=== PATIENT | female | born 1985 | race African-American/Black ===

== ENCOUNTER 2021-05-12 07:27 | Day surgery (SDC) | payer OTHER ==
[2021-05-12 07:51] LABS: Specific Gravity >= 1.030 (1.005-1.030)
[2021-05-12] MEDS ORDERED: CEFAZOLIN SODIUM 1 GM/VIAL ONE (08:52)
[2021-05-12] MEDS ORDERED: GENTAMICIN SULF 80 MG/2ML INJ ONE (08:52)
[2021-05-12] MEDS ORDERED: NS 0.9% VIAL 30 ML ONE (08:52)
[2021-05-12] MEDS ORDERED: Mastisol Adhesive Liq ONE (08:53)
[2021-05-12] MEDS ORDERED: LIDOCAINE 1% W/EPI 1:100,000 MDV 20 ML VIAL ONE (08:53)
[2021-05-12] MEDS ORDERED: Ringers Lactate 1,000 ML IV ONE ×2 (08:53)
[2021-05-12] MEDS ORDERED: GLYCOPYRROLATE 0.2 MG/ML SYR ONE (08:56)
[2021-05-12] MEDS ORDERED: LIDOCAINE 2% MPF 5 ML VIAL ONE (08:56)
[2021-05-12] MEDS ORDERED: ROCURONIUM 50 MG/5 ML VIAL IV ONE ×2 (08:56→10:02)
[2021-05-12] MEDS ORDERED: propofoL 200 MG/20 ML VIAL IV ONE (08:56)
[2021-05-12] MEDS ORDERED: MIDAZOLAM HCL 2 MG/2 ML INJ ONE (08:57)
[2021-05-12] MEDS ORDERED: FENTANYL CITR 250 MCG/5 ML ONE ×2 (08:57→10:53)
[2021-05-12] MEDS ORDERED: ONDANSETRON 4 MG/2 ML VIAL ONE ×2 (08:59→14:33)
[2021-05-12] MEDS ORDERED: dexAMETHasone 10 MG/ML VIAL ONE (09:00)
[2021-05-12] MEDS ORDERED: CEFAZOLIN/NS 1gm 1 GM/50 ML BAG ONE (09:01)
[2021-05-12] MEDS ORDERED: KETOROLAC 30 MG/ML INJ ONE (09:01)
[2021-05-12] MEDS ORDERED: SCOPOLAMINE HYDROBROMIDE PATCH TD ONE (09:02)
[2021-05-12] MEDS: Ringers Lactate 1,000 ML IV ONE ×2 (10:30→11:58)
[2021-05-12 14:30] VITALS: O2SAT 100
[2021-05-12] MEDS: HYDROMORPHONE HCL 1 MG/ML INJ ONE ×2 (14:36→14:41)
[2021-05-12] MEDS ORDERED: PROMETHAZINE INJ 25 MG/ML AMP IV ONE (15:00)
[2021-05-12] MEDS ORDERED: PROMETHAZINE INJ 25 MG/ML AMP ONE (15:28)
[2021-05-12] MEDS ORDERED: CODEINE 30MG/APAP 300MG TAB PO ONE (15:45)
[2021-05-12] MEDS ORDERED: CODEINE 30MG/APAP 300MG TAB ONE (15:57)
[2021-05-12 16:39] VITALS: BP 154/93; TEMP 97
== END 2021-05-12 16:30 | disposition home or self-care (01) ==
LOC: OR 07:27
PROVIDERS: ATTEND Specialist
PROC: 0HSV0ZZ Reposition Bilateral Breast, Open Approach (ICD-10-PCS; principal; 2021-05-12 09:00)
DX: N64.81 Ptosis of breast (principal); N62 Hypertrophy of breast; U07.1 COVID-19
CPT/HCPCS: 81025; 19316; J2704; J2550 ×2; J1580; J2250; J3010 ×2; J1100; J1170; J0690 ×2; J7120 ×3; J2405 ×2; 88305